=== PATIENT | female | born 1970 | race Caucasian/White ===

== ENCOUNTER 2019-06-30 17:24 | Emergency (ER) | payer OTHER ==
[2019-06-30] MEDS ORDERED: ALPRAZOLAM 0.25 MG TABLET PO ONE (18:01)
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
[2019-06-30] MEDS ORDERED: MORPHINE SULFATE IR 15 MG TABLET PO ONE (21:17)
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
[2019-06-30 21:31] VITALS: BP 137/81
== END 2019-06-30 21:54 | disposition home or self-care (01) ==
LOC: ER 17:24
DX: M54.6 Pain in thoracic spine (principal); M54.9 Dorsalgia, unspecified; M25.512 Pain in left shoulder; M54.2 Cervicalgia; M25.552 Pain in left hip; V87.7XXA Person injured in collision between other specified motor vehicles (traffic), initial encounter
CPT/HCPCS: 71046; 99283